=== PATIENT | female | born 1960 | race Caucasian/White ===

== ENCOUNTER 2020-02-09 14:01 | Outpatient (CLI) | payer OTHER, SELFPAY ==
--- NOTE | ~2020-02-09 | CT_ITS ---
EXAMINATION: CT abdomen pelvis w con DATE: 02/09/2020 14:36 INDICATION: Lower abdominal pain, tenderness since surgery in May 2019 TECHNIQUE: Computed tomography (CT) of the abdomen and pelvis was performed with 100 cc Omnipaque 350 intravenous contrast. Automated exposure control and iterative reconstruction technique were employe d. Exam dose: 433.95 mGy-cm total exam DLP. COMPARISON: None. FINDINGS: There is minimal dependent atelectasis in the lower lobes; the lower lung zones are otherwi se clear. Normal heart size. No pericardial or pleural effusion. The liver, gallbladder, bile ducts, spleen, pancreas and pancreatic duct appear normal. Normal morpho logy of the adrenal glands. 11.5 cm upper pole right renal cyst. 5 mm mid right renal cyst there are a couple of 4.5 mm or smalle r lower pole left renal cyst. Normal caliber of the abdominal aorta. No intraperitoneal or retroperitoneal or pelvic mass lesion or adenopathy or ascites. Status post hysterectomy. The urinary bladder is unremarkable. Normal appendix. No bowel obstruction or intraperitoneal free air. Mild diverticulosis of the left co kymberly; no CT evidence of diverticulitis. There is grade 1 anterolisthesis at L4-5 due to degenerative change at the apophyseal joints. No suspicious osteolytic or osteoblastic lesions are noted. IMPRESSION: Renal cysts Mild diverticulosis of the left colon; no CT evidence of diverticulitis Status post hysterectomy Reviewed, dictated and finalized at [facility]. Reviewed, dictated and finalized at location A.
[2020-02-09 14:31] LABS: Estimated Glomerular Filt Rate > 60
== END 2020-02-09 14:02 | disposition home or self-care (01) ==
PROVIDERS: PCP Family Medicine; Visit Provider Obstetrics & Gynecology
DX: N28.1 Cyst of kidney, acquired (principal); K57.30 Diverticulosis of large intestine without perforation or abscess without bleeding; Z90.49 Acquired absence of other specified parts of digestive tract
CPT/HCPCS: 74177; Q9967

== ENCOUNTER 2020-02-11 16:02 | Outpatient (CLI) | payer OTHER, SELFPAY ==
--- NOTE | ~2020-02-11 | MM_ITS ---
EXAMINATION: MM screening pamela BI w margie HISTORY: Screening TECHNIQUE: Craniocaudal and mediolateral oblique 3-D tomosynthesis images were obtained and synthetic 2-D images were generated. CAD analysis was submitted and interpreted. COMPARISON: Comparison to multiple prior studies sequentially, with oldest reviewed study dated 07/31. BREAST PARENCHYMAL COMPOSITION: There are scattered areas of fibroglandular density. FINDINGS: There is no evidence of suspicious mass, calcification, or architectural distortion to sugg est malignancy in either breast. There has been no suspicious interval change. IMPRESSION: 1. No mammographic evidence of malignancy. 2. Recommend routine screening mammography in one year. BI-RADS Category 1: Negative Reviewed, dictated and finalized at location A.
== END 2020-02-11 16:03 | disposition home or self-care (01) ==
LOC: ANHIMG 16:03
PROVIDERS: PCP Family Medicine; Visit Provider Obstetrics & Gynecology
DX: Z12.31 Encounter for screening mammogram for malignant neoplasm of breast (principal)
CPT/HCPCS: 77063; 77067

== ENCOUNTER 2020-04-06 06:54 | Outpatient (NON) | payer OTHER, SELFPAY ==
[2020-04-07 13:08] LABS: SARS-CoV-2 RNA PCR Positive
== END 2020-04-06 06:55 ==
LOC: ANHCOVIDDT 07:06
PROVIDERS: PCP Family Medicine; Visit Provider Physician Assistant Medical
DX: U07.1 COVID-19 (principal)
CPT/HCPCS: 87635; C9803; U0003

== ENCOUNTER 2020-06-29 08:50 | Outpatient (CLI) | payer OTHER, SELFPAY ==
--- NOTE | ~2020-06-29 | DEXA_ITS ---
Bone Density Report Name: Flor Bustamante Age: 60 Sex: Female Ethnicity: White Date of : 1960 Indication: postmenopausal; height loss; prior fracture; hysterectomy; Referring Provider: Lisa Torres Study: Bone densitometry was performed. Exam Date: June 29, 2020 Accession number: [id number] Bone Density: Region BMD T-score Z-score Classification AP Spine (L1-L4) 1.035 -0.1 1.5 Normal Femoral Neck (Left) 0.850 0.0 1.4 Normal Total Hip (Left) 0.952 0.1 1.2 Normal Total Hip Bilateral Avg 0.945 0.1 1.1 Normal Femoral Neck (Right) 0.857 0.1 1.5 Normal Total Hip (Right) 0.937 0.0 1.0 Normal World Health Organization criteria for BMD impression classify patients as: Normal (T-score at or above -1.0), Osteopenia (T-score between -1.0 and -2.5), or Osteoporosis (T-score at or below -2.5). 10-year Fracture Risk: FRAX not reported because: All T-scores for Spine Total, Hip Total, Femoral Neck at or above -1.0 Clinical Information Provided by Patient: Has had a low trauma fracture Has the following medical conditions: Hysterectomy Patient maximum height was 64 Menopause Age: 48 Drinks caffeinated beverages Onset of menses at age 10 Impression: The patient has normal bone mass. The patient has risk factors, including: previous fracture. Discussion: BONE DENSITY IS ABOVE THE MINIMUM DESIRABLE LEVEL AT ALL SKELETAL SITES TESTED. This patient?s bone mineral density is above the minimum desirable level (T-score -1.0 or better) at all sites measured. The patient should follow a healthful lifestyle (good nutrition with adequate calcium and vitamin D, and appropriate weight-bearing exercise). Follow-Up: Consider repeating this study in 5 years or sooner if there is some new clinical indication. Reported by: ARGELIA on 06/29/2020 9:27:00 AM. Reviewed, dictated and finalized at location [facility]
== END 2020-06-29 08:51 | disposition home or self-care (01) ==
LOC: ANHIMG 08:51
PROVIDERS: PCP Family Medicine; Visit Provider Nurse Practitioner Family
DX: E03.9 Hypothyroidism, unspecified (principal); E55.9 Vitamin D deficiency, unspecified; Z78.0 Asymptomatic menopausal state
CPT/HCPCS: 77080

== ENCOUNTER 2022-05-01 16:02 | Outpatient (CLI) | payer OTHER, SELFPAY ==
--- NOTE | ~2022-05-01 | XR_ITS ---
XR shoulder LT min 2V 05/01/2022 16:31 Indication: Chronic left shoulder pain Procedure: 5 views left shoulder Comparison: No prior studies for comparison. Findings: There is mild polyarticular osteoarthritis of the left shoulder involving the glenohumeral and acromioclavicular joints. Osteopenia. Lung are unremarkable. No soft tissue abnormality. Impression: 1: Mild polyarticular osteoarthritis of the left shoulder. Reviewed, dictated and finalized at location A. 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
== END 2022-05-01 16:03 | disposition home or self-care (01) ==
PROVIDERS: PCP Family Medicine; Visit Provider Nurse Practitioner Family
DX: M19.012 Primary osteoarthritis, left shoulder (principal)
CPT/HCPCS: 73030

== ENCOUNTER 2023-01-02 13:52 | Outpatient (CLI) | payer OTHER, SELFPAY ==
--- NOTE | ~2023-01-02 | MM_ITS ---
EXAMINATION: MM screening pamela BI w margie HISTORY: Screening mammogram TECHNIQUE: Craniocaudal and mediolateral oblique 3-D tomosynthesis images were obtained and synthetic 2-D images were generated. CAD analysis was submitted and interpreted. COMPARISON: 02/11/2020, 07/20/2015 bilateral screening mammogram examinations BREAST PARENCHYMAL COMPOSITION: There are scattered areas of fibroglandular density. FINDINGS: There is no evidence of suspicious mass, calcification, or architectural distortion to sugg est malignancy in either breast. There has been no suspicious interval change. IMPRESSION: 1. No mammographic evidence of malignancy. 2. Recommend routine screening mammography in one year. BI-RADS Category 1: Negative Reviewed, dictated and finalized at location A.
== END 2023-01-02 13:53 | disposition home or self-care (01) ==
LOC: ANHIMG 13:55
PROVIDERS: PCP Family Medicine; Visit Provider Obstetrics & Gynecology
DX: Z12.31 Encounter for screening mammogram for malignant neoplasm of breast (principal)
CPT/HCPCS: 77063; 77067

== ENCOUNTER 2024-11-24 01:20 | Day surgery (SDC) | payer MEDICARE, SELFPAY ==
[2024-11-10 08:25] VITALS: BMI 26.6
[2024-11-24 08:37] VITALS: BP 110/66; PULSE 66; RESP 17; TEMP 36.3; O2SAT 99; BMI 26.4
[2024-11-24] MEDS: LACTATED RINGERS 1,000 ML 150 ML IV CONT (08:46)
--- NOTE | 2024-11-24 08:56 | P.PNAN_ITS ---
Anes - Initial Pre Proc Eval Procedure: Operation Date: 11/24/24 10:00 Proposed Procedures p Screening Colonoscopy - Brian Chapa DO Date/Time: 11/24/24 08:56 Surgeon: Brian Chapa DO Pre Op Diagnosis: neoplasm screening Patient Data Age: 64 Gender: F Height: 1.57 m Weight: 65.5 kg Last Vital Signs Temp 36.3 C L 11/24/24 08:37 Pulse 66 11/24/24 08:37 Resp 17 11/24/24 08:37 BP 110/66 11/24/24 08:37 Pulse Ox 99 11/24/24 08:37 O2 Del Method Room Air 11/24/24 08:37 Allergies Allergy/AdvReac Type Severity Reaction Status Date / Time No Known Allergies Allergy Verified 11/24/24 08:36 Home Medications ?Medication ?Instructions ?Recorded ?Confirmed ?Type sumatriptan succinate 100 mg tablet See Rx Instructions .Route 04/14/24 11/10/24 Rx .COMPLEX #9 tabs levothyroxine 100 mcg tablet See Rx Instructions .Route 08/11/24 11/10/24 Rx .COMPLEX #90 tabs estradiol 1 mg tablet 1 mg PO DAILY #30 tabs 11/02/24 11/10/24 Rx Patient hx anesthesia problems: none Family hx anesthesia problems: none Results Review: All pre-operative results and documents have been reviewed as part of the pre- operative evaluation. FOR[facility]LY [facility] Past Medical History Medical History Changing skin lesion Skin tag Seborrheic keratoses Actinic keratosis Open wound of tongue due to bite Left shoulder pain Anemia Foul smelling urine Acute sinusitis Vitamin D deficiency Vitamin D deficiency, unspecified Abnormal weight gain BMI 26.0-26.9,adult Fear of flying Screening mammogram, encounter for Anxiety Hypothyroidism Chronic UTI (urinary tract infection) BMI 25.0-25.9,adult Abdominal fullness in right lower quadrant Renal cyst Surgical History Surgical History H/O: hysterectomy History of bladder surgery History of sacrocolpopexy (05/14/19) History of endometrial ablation menometrorrhagia History of bladder suspension procedure History of robot-assisted laparoscopic hysterectomy (05/14/19) total laparoscopic hysterectomy w/bilateral salpingo-oophorectomy--uterine prolapse Family History Family History Grandparent Family history of coronary artery disease Father Cerebrovascular accident Mother Sibling Rectal cancer brother Social History Social History Years smoked: 10 Smoking status: Former smoker Tobacco type: cigarettes Second hand tobacco smoke exposure: No Smoking end date: 12/01/91 Alcohol intake: current Drinks per week: 5 Alcohol use details: social Substance use: never Substance use type: does not use Other substance usage details: CBD oil for sciatica Do You Feel Safe in your Home?: Yes Lack of Transportation: No Lack of Food: Never True Current Housing: Decline to Answer Concerned About Future Housing: Decline to Answer Difficulty Paying Gas/Electric Bills: Decline to Answer Difficulty Paying for Meds: Decline to Answer Currently Unemployed: Decline to Answer Education: Decline to Answer Difficulty w/ Childcare or Family Care: Decline to Answer Living arrangements: alone Additional living arrangements comments: Occupation/Education: retired Gender identity (if verbalized by the patient): Female Sexual Orientation (if Verbalized by the Patient): Straight or Heterosexual Spiritual care concerns: No Anes - Eval Final PreProcedure Day of Procedure 11/24/24 08:56 Patient weight: overweight Heart: regular rate and rhythm Lungs: clear to auscultation Airway: Mallampati scale class II Neurological: alert and oriented Last oral intake: >/= 8 hours ASA classification: III Emergent: no Anesthetic plan: proceed Anesthesia type and monitoring: general GIVS and standard monitoring Results Review: All pre-operative results and documents have been reviewed as part of the pre- operative evaluation. Informed Consent: The patient's anesthetic plan and its attendant risks and benefits were discussed with the patient/family/POA. Questions were solicited and answers provided to the satisfaction of the patient/family/POA.
--- NOTE | 2024-11-24 09:43 | P.HP_ITS ---
H&P: HPI History of Present Illness Date/Time: 11/24/24 09:43 Chief Complaint: screening for colorectal cancer Narrative: this is a 64-year-old woman who presents for colonoscopy. Her last colonoscopy was 13 years ago and was normal. She denies any hematochezia or melena. She denies any family history of colon cancer. Review of Systems Review of Systems: All systems reviewed & are unremarkable except as noted in HPI and below Constitutional: Constitutional: Denies chills, Denies fever(s), Denies headache(s) and Denies weight loss Eyes: Eyes: Denies change in vision ENT: Denies dizziness, Denies headache(s), Denies neck mass and Denies throat swelling Cardiovascular: Cardiovascular: Denies chest pain, Denies lightheadedness and Denies dyspnea Respiratory: Respiratory: Denies cough, Denies dyspnea and Denies wheezing Gastrointestinal: Gastrointestinal: Denies abdominal pain, Denies change in bowel habits, Denies nausea and Denies vomiting Genitourinary: Genitourinary: Denies hematuria and Denies dysuria Musculoskeletal: Musculoskeletal: Reports as per HPI Integumentary/Breasts: Skin/Breast: Reports as per HPI Neurologic: Denies dizziness and Denies headache(s) Allergic/Immunologic: Allergic/Immunologic: Denies throat swelling and Denies wheezing PMFSH Past Medical History Medical History Changing skin lesion Skin tag Seborrheic keratoses Actinic keratosis Open wound of tongue due to bite Left shoulder pain Anemia Foul smelling urine Acute sinusitis Vitamin D deficiency Vitamin D deficiency, unspecified Abnormal weight gain BMI 26.0-26.9,adult Fear of flying Screening mammogram, encounter for Anxiety Hypothyroidism Chronic UTI (urinary tract infection) BMI 25.0-25.9,adult Abdominal fullness in right lower quadrant Renal cyst Surgical History Surgical History H/O: hysterectomy History of bladder surgery History of sacrocolpopexy (05/14/19) History of endometrial ablation menometrorrhagia History of bladder suspension procedure History of robot-assisted laparoscopic hysterectomy (05/14/19) total laparoscopic hysterectomy w/bilateral salpingo-oophorectomy--uterine prolapse Family History Family History Grandparent Family history of coronary artery disease Father Cerebrovascular accident Mother Sibling Rectal cancer brother Social History Social History Years smoked: 10 Smoking status: Former smoker Tobacco type: cigarettes Second hand tobacco smoke exposure: No Smoking end date: 12/01/91 Alcohol intake: current Drinks per week: 5 Alcohol use details: social Substance use: never Substance use type: does not use Other substance usage details: CBD oil for sciatica Do You Feel Safe in your Home?: Yes Lack of Transportation: No Lack of Food: Never True Current Housing: Decline to Answer Concerned About Future Housing: Decline to Answer Difficulty Paying Gas/Electric Bills: Decline to Answer Difficulty Paying for Meds: Decline to Answer Currently Unemployed: Decline to Answer Education: Decline to Answer Difficulty w/ Childcare or Family Care: Decline to Answer Living arrangements: alone Additional living arrangements comments: Occupation/Education: retired Gender identity (if verbalized by the patient): Female Sexual Orientation (if Verbalized by the Patient): Straight or Heterosexual Spiritual care concerns: No Meds Home Medications and Allergies Home Medications ?Medication ?Instructions ?Recorded ?Confirmed ?Type sumatriptan succinate 100 mg tablet See Rx Instructions .Route 04/14/24 11/10/24 Rx .COMPLEX #9 tabs levothyroxine 100 mcg tablet See Rx Instructions .Route 08/11/24 11/10/24 Rx .COMPLEX #90 tabs estradiol 1 mg tablet 1 mg PO DAILY #30 tabs 11/02/24 11/10/24 Rx Allergies Allergy/AdvReac Type Severity Reaction Status Date / Time No Known Allergies Allergy Verified 11/24/24 08:36 Vital Signs Vital Signs - 24 hr 11/24/24 08:37 Temperature 97.3 F L Pulse Rate 66 Respiratory Rate 17 Blood Pressure 110/66 Pulse Oximetry 99 Oxygen Delivery Room Air Exam Const: General: no acute distress and alert Orientation/consciousness: patient oriented x3 HENMT: Head: normocephalic and atraumatic Ears: hearing grossly normal bilaterally Face/Nose/Sinus: Normal nares present Mouth: Yes Normal oral and palatal mucosa present Eyes: Periorbital: periorbital findings normal Sclera: sclerae normal EOM: EOMs intact bilaterally Neck: Neck: normal visual inspection, no lymphadenopathy and trachea midline Chest: Chest palpation & inspection: normal inspection of the chest Resp: Effort & Inspection: normal respiratory effort Auscultation: clear to auscultation bilaterally Cardio: Jugular venous distension: no JVD Rate: regular rate Rhythm: regular rhythm Heart sounds: S1 normal heart sound present and S2 normal h eart sound present Peripheral pulses: Peripheral pulses 2+ throughout GI: Inspection: normal to inspection GI Palp: Yes Soft to palpation, No Tenderness to palpation present (GI), No Guarding due to palpation present (GI) and No Rebound tenderness present Percussion: Yes normal to percussion Auscultation: normal bowel sounds : General: Yes no CVA tenderness Back/Spine/Pelvis: Back: no CVA tenderness Neuro: General: patient oriented x3, no focal motor deficits and CN's II-XI intact bilaterally Cognition (Neuro): normal cognition Speech: normal speech Motor exam (neuro): 5/5 motor strength present throughout Extrem: General: capillary refill normal and no clubbing, cyanosis or edema Assessment and Plan Assessment and plan (1) Encounter for screening colonoscopy: Code(s): Z12.11 - Encounter for screening for malignant neoplasm of colon Status: Acute Assessment and Plan: I have recommended colonoscopy. I have discussed the procedure, risks, benefits, and alternatives. Questions were answered. Patient is agreeable to proceed.
--- NOTE | 2024-11-24 10:16 | S_PTH ---
PATIENT: Flor Bustamante LOC: [facility] V[facility]la#:[id number] AGE/SX: 64/F ROOM: RE11/24/[address]: Brian Chapa DO : 1960 BED: DIS: 11/24/2024 SPEC #: [id number] RECD: 11/24/24 10:54 STATUS: BARBER REQ #: [id number] CESAR: 11/24/24 10:[address]: Brian Chapa DEPT: [facility] Surgical RECD BY: Evangelina Preciado ENTERED: 11/24/24 10:55 SP TYPE: Surgical OTHR DR: Finesse Mazariegos MD Tissues: A - Colon Polypectomy B - Rectal Polyp Procedures: Hematoxylin and Eosin Stain Gross and Microscopic Level 4
[2024-11-24 10:20] VITALS: BP 100/46; PULSE 70; RESP 19; O2SAT 99
[2024-11-24 10:30] VITALS: BP 103/68; PULSE 64; RESP 18; O2SAT 99
[2024-11-24 10:40] VITALS: BP 101/60; PULSE 59; RESP 19; O2SAT 99
== END 2024-11-24 10:51 | disposition home or self-care (01) ==
PROVIDERS: PCP Family Medicine; Visit Provider Surgery
PROC: 0DJD8ZZ Inspection of Lower Intestinal Tract, Via Natural or Artificial Opening Endoscopic (ICD-10-PCS; CPT 45378; principal; 2024-11-24 10:00)
DX: Z12.11 Encounter for screening for malignant neoplasm of colon (principal); D12.3 Benign neoplasm of transverse colon; D12.8 Benign neoplasm of rectum; K57.30 Diverticulosis of large intestine without perforation or abscess without bleeding; D64.9 Anemia, unspecified; E55.9 Vitamin D deficiency, unspecified; F41.9 Anxiety disorder, unspecified; E03.9 Hypothyroidism, unspecified; L82.1 Other seborrheic keratosis; L57.0 Actinic keratosis; F12.90 Cannabis use, unspecified, uncomplicated; Z98.890 Other specified postprocedural states; Z98.891 History of uterine scar from previous surgery; Z87.891 Personal history of nicotine dependence; Z80.0 Family history of malignant neoplasm of digestive organs; Z82.49 Family history of ischemic heart disease and other diseases of the circulatory system
CPT/HCPCS: 45385; 88305; J2003; J2704; J7120

== ENCOUNTER 2025-04-07 15:47 | Outpatient (CLI) | payer MEDICARE, SELFPAY ==
--- NOTE | ~2025-04-07 | MM_ITS ---
EXAMINATION: MM screening pamela BI w margie HISTORY: Screening TECHNIQUE: Craniocaudal and mediolateral oblique 3-D tomosynthesis images were obtained and synthetic 2-D images were generated. CAD analysis was submitted and interpreted. COMPARISON: Comparison to multiple prior studies sequentially, with oldest reviewed study dated , 07/31/2010 BREAST PARENCHYMAL COMPOSITION: There are scattered areas of fibroglandular density. FINDINGS: There is no evidence of suspicious mass, calcification, or architectural distortion to suggest malignancy in either breast. IMPRESSION: 1. No mammographic evidence of malignancy. 2. Recommend routine screening mammography in one year. BI-RADS Category 1: Negative Reviewed, dictated and finalized at location B. 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
== END 2025-04-07 15:48 | disposition home or self-care (01) ==
LOC: MICIMG 15:47
PROVIDERS: PCP Family Medicine; Visit Provider Obstetrics & Gynecology
DX: Z12.31 Encounter for screening mammogram for malignant neoplasm of breast (principal)
CPT/HCPCS: 77063; 77067

== ENCOUNTER 2025-04-27 10:48 | Observation (INO) | payer MEDICARE, SELFPAY ==
[2025-04-27] VITALS (26 sets, daily range): BP systolic 98–121; BP diastolic 55–90; PULSE 58–91; RESP 12–26; TEMP 36.3–37.1; O2SAT 96–100; BMI 27.8; BMI 27.6
--- NOTE | ~2025-04-27 | CT_ITS ---
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 TECHNIQUE: CTA scan with 3D Reconstructions of the brain and neck was performed with contrast Isovue 300, 92cc injected IV. One or more of the following dose reduction techniques were used: automated exposure control, adjustment of the mA and/or kV according to patient size, use of iterative reconstruction technique. Unless otherwise stated, incidental findings do not require dedicated follow up imaging FINDINGS: CTA brain: Visualized brain parenchyma appears unremarkable. No sclerotic or lytic lesions are identified. The basilar artery appears unremarkable. The right posterior cerebral artery appears unremarkable. The left posterior cerebral arteries. Predominantly by the jena of [place] and appears unremarkable. The right petrous and cavernous ICA segments are unremarkable. The right M1, M2 segments and their branches are unremarkable. The right A1 and A2 segments are unremarkable The left petrous and cavernous ICA segments unremarkable. The left M1, M2 segments and their branches appear unremarkable. The left A1 and A2 segments are unremarkable. CTA NECK: Soft tissues appear unremarkable. There is a rim-enhancing focus in the left tonsillar tissue measuring 5 x 6 mm which is incompletely characterized. There is no thickening of the prevertebral space. Visualized submandibular and parotid glands are unremarkable. There is no lymphadenopathy appreciated. Nonspecific thickening is noted of the esophagus. The lung apices appear unremarkable. There are no sclerotic or lytic lesions identified. No significant sinusitis The cervical segments of the vertebral arteries appear unremarkable. The left vertebral artery is dominant Right CCA unremarkable. Proximal right ICA unremarkable. Left CCA unremarkable. Proximal left ICA unremarkable. IMPRESSION: 1. There is no critical stenosis, occlusion or aneurysm identified. 2. Left tonsillar lesion incompletely characterized. Neoplasm is not excluded. ENT consultation is recommended Reviewed, dictated and finalized at location P. ITY IMPROVEMENT ENGINEER
--- NOTE | ~2025-04-27 | MR_ITS ---
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 Sequences included sagittal and axial T1-weighted SE, axial diffusion-weighted FS SE, axial T2*-weighted GRE, axial T2-weighted FLAIR Propeller, and axial T2-weighted Propeller. Apparent diffusion coefficient (ADC) maps were created. 14 cc MultiHance administered intravenously COMPARISON: CTA brain/carotid dated 04/27/[address] brain dated 04/27/2025 FINDINGS: The brain volume and ventricular system are within normal limits. The brain parenchymal signal intensity pattern and michaels/white matter is normal and there is no evidence of hemorrhage, space occupying masses or infarctions. The flow signal voids of the major arterial structures about the crow of [place] and within the major dural venous sinuses appear grossly unremarkable and patent. The seventh and eighth cranial nerve complexes are normal. The mid sagittal image demonstrates a normal craniovertebral junction and corpus callosum. The paranasal sinuses are grossly unremarkable. No abnormal contrast enhancement was appreciated. Hypovascular left tonsillar lesion measuring 5 mm incompletely characterized as visualized on image 1 only. IMPRESSION: 1: No acute intracranial abnormality. 2: Incompletely evaluated 5 mm hypovascular lesion left tonsillar region. Recommend ENT consultation. Reviewed, dictated and finalized at location O. D WASTE COLLECTOR IMPRESSION: 1: No acute intracranial abnormality. 2: Incompletely evaluated 5 mm hypovascular lesion left tonsillar region. Recom mend ENT consultation.
--- NOTE | ~2025-04-27 | XR_ITS ---
Examination: XR chest 1V portable Clinical History: loss of vision Comparison: None Technique: Portable AP Findings: Heart size normal. Lungs clear. No acute bony abnormality. IMPRESSION: 1. No acute cardiopulmonary findings given portable technique. Consider PA and lateral films. Reviewed, dictated and finalized at location R. ANCE EDUCATION COORDINATOR
--- NOTE | ~2025-04-27 | CT_ITS ---
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 Technique: Axial images obtained of the brain without contrast. One or more of the following dose reduction techniques were used: automated exposure control, adjustment of the mA and/or kV according to patient size, use of iterative reconstruction technique. Findings: No acute infarct or parenchymal hemorrhage. No abnormal mass or mass effect. No midline shift. No extra-axial fluid collections. No hydrocephalus. Mastoid air cells unremarkable. Sinuses and orbits unremarkable. No acute fracture. No significant facial or scalp soft tissue swelling evident. No radiopaque foreign body is seen. Impression: 1.No acute intracranial abnormality. Results discussed with the referring clinician immediately Reviewed, dictated and finalized at location P. BOILER Impression: 1.No acute intracranial abnormality. Results discussed with the referring clinician immediately
--- NOTE | 2025-04-27 10:53 | ECG_ITS ---
Test Date: 2025-04-27 11:08:42 Measurements Intervals [place] Rate: 79 P: 44 SC: 159 QRS: 9 QRSD: 92 T: 12 QT: 378 QTc: 435 Interpretive Statements SINUS RHYTHM LOW QRS VOLTAGE BORDERLINE ECG No previous ECG available for comparison Electronically Signed On 04-27-2025 17:28:52 CLINICAL TRIAL MANAGER by Peter Ponce M.D.
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
[2025-04-27 11:12] LABS: Hematocrit 39.1 % (37.0-47.0); Hemoglobin 12.8 g/dL (12.0-15.0); Immature Granulocyte Percent A 0.2 % (0-0.5); Lymphocytes Absolute Auto 1.47 K/mm3 (0.9-3.2); Mean Corpuscular HGB Conc 32.7 g/dl (32-36); Mean Corpuscular Hemoglobin 29.2 pg (26-34); Mean Corpuscular Volume 89.3 fl (80-100); Nucleated Red Blood Cells Absolute Auto 0.000 K/mm3 (0.0-0.012); Nucleated Red Blood Cells Perc 0.0 % (0.0-0.2); Platelet Count Result 239 k/mm3 (150-375); Red Blood Count 4.38 M/mm3 (4.2-5.4); White Blood Count 5.2 K/mm3 (4.5-10.0)
[2025-04-27 11:23] LABS: INR 1.0; Prothrombin Time 12.9 Seconds (11.1-14.7)
[2025-04-27 11:24] LABS: Partial Thromboplastin Time 26.5 Seconds (22.3-36.8)
[2025-04-27 11:29] LABS: Alanine Aminotransferase 18 U/L (6-35); Albumin Level 4.5 g/dL (3.5-5.1); Alkaline Phosphatase 74 U/L (38-126); Anion Gap 7 mmol/L (4-12); Aspartate Amino Transferase 29 U/L (14-36); Bilirubin,Total 0.6 mg/dL (0.2-1.3); Blood Urea Nitrogen 12 mg/dL (7-17); Calcium 9.4 mg/dL (8.4-10.2); Carbon Dioxide 26 mmol/L (22-30); Chloride 105 mmol/L (98-107); Estimated CRCL calculation 61 ml/min; Estimated Glomerular Filt Rate > 60; Glucose 113 mg/dL (65-110); Potassium 4.2 mmol/L (3.4-5.0); Sodium 138 mmol/L (137-145); Total Protein 7.8 g/dL (6.3-8.2)
[2025-04-27 11:36] LABS: Troponin I < 0.012 ng/mL (0.000-0.034)
[2025-04-27] MEDS: ASPIRIN 81 MG CHEWABLE TABLET 324 MG PO (11:36)
--- OUTSIDE RECORDS SUMMARY | 2025-04-27 12:51 | XMS_ITS | Clinical Summary ---
Author Organization [facility] Address [address] [place] [id number] Care Team Providers Care Movement Therapist Name Role Phone Unavailable Primary Care Provider Unavailabl e Social History Tobacco Use Types Packs/Day Years Used Date Smoking Tobacco: Never Assessed Comments Unknown Sex and Gender Information Value Date Recorded Sex Assigned at Not on file Legal Sex Female 8:22 PM CDT Gender Identity Not on file Sexual Orientation Not on file Last Filed Vital Signs Vital Sign Reading Time Taken Comments Blood Pressure 101/65 12/27/2015 11:30 AM CDT Pulse 76 12/27/2015 11:30 AM CDT Temperature - - Respiratory Rate - - Oxygen Saturation - - Inhaled Oxygen Concentration - - Weight 66.2 kg (146 lb) 12/27/2015 11:30 AM CDT Height 160 cm (5' 3) 12/27/2015 11:30 AM CDT Body Mass Index 25.86 12/27/2015 11:30 AM CDT Plan of Treatment Health Maintenance Due Date Last Done Comments Colorectal Cancer Screening Colonoscopy (10 Years) 1958 Hepatitis C 02/27/1976 DTaP, Tdap and Td Vaccines ( 1 - Tdap) 1977 Mammogram Screening 1998 Pneumococcal Vaccine: 50+ Ye ars (1 of 1 - PCV) 02/27/2008 Zoster Vaccines (1 of 2) 02/27/2008 Dexa Scan (General) 2023 COVID-19 Vaccine (1 - 2024-2 6 season) 2025 Influenza Adult (#1) 2025 RSV Immunization or 60+ Years (1 - 1-dose 75+ series) 2033 Hepatitis A Vaccines Aged Out No long er eligible based on patient's age to complete this topic Meningococcal B Vaccine Aged Out No l onger eligible based on patient's age to complete this topic Meningococcal Vaccine Aged Out No kymberly nicolás eligible based on patient's age to complete this topic RSV Immunizations Under 20 Months Aged Out No longer eligible based on patient's age to complete this topic
--- OUTSIDE RECORDS SUMMARY | 2025-04-27 12:51 | XMS_ITS | Encounter Summary ---
Author Organization [facility] Address [address] [place] [address] Care Team Providers Care Manager Scientific Name Role Phone Finesse Mazariegos MD Primary Care Provider [phone] Encounter Details Date Type Department Care Team (Late st Contact Info) Description 01/28/2024 Lab Requisition [facility] - DermPath Lab [address] [facility] [facility], [facility] [place] [id number] Finesse Mazariegos MD [address] [place] [address] Social History Tobacco Use Types Packs/Day Years Used Date Smoking Tobacco: Former Smokeless Tobacco: Never Comments No Sex and Gender Information Value Date Recorded Sex Assigned at Not on file Legal Sex Female 10:17 PM CDT Gender Identity Not on file Sexual Orientation Not on file documented as of this encounter Plan of Treatment Not on file documented as of this encounter Procedures Procedure Name Priority Date/Time Associated Diagnosis Comments DERMATOPATHOLOGY Routine 01/27/2024 12:0 0 AM CDT documented in this encounter Results * DERMATOPATHOLOGY (01/27/2024 12:00 AM CDT) Case Report Dermatopathology Report Case: [id number] Authorizing Provider: Finesse Mazariegos MD Collected: 01/27/2024 12:00 AM Ordering Location: [facility] - Received: 01/28/2024 10:20 AM DermPath Lab Pathologist: Kylie Lauren MD Specimen: Skin, left upper back 1:02 PM CDT DERMATOPATHOLOGY LABORATORY Final Diagnosis Specimen A. SKIN, left upper back: SEBORRHEIC KERATOSIS (L82.1) PRESENT AT MARGIN 1:02 PM CDT DERMATOPATHOLOGY LABORATORY at 1302 CDT Clinical History Changing suspicious lesion Please check margins 1:02 PM CDT DERMATOPATHOLOGY LABORATORY Gross Description Specimen A: Received is one formalin filled container labeled with the patient's name and designated left upper back. The specimen consists of a shave biopsy measuring [id number] mm. Jar 0. 1:02 PM CDT DERMATOPATHOLOGY LABORATORY Microscopic Description Specimen A. SKIN, left upper back: Sections show an acanthotic lesion composed of relatively uniform keratinocytes. There is hyperkeratosis and pseudo horn cysts formation. This lesion is present at the margin of the specimen. 1:02 PM CDT DERMATOPATHOLOGY LABORATORY Disclaimer An external and internal positive and negative controls are appropriate for the histochemical, immunohistochemical and immunofluorescence stain(s) in this case (if any), except where stated explicitly. The performance characteristics of the stain(s) cited in this report were developed and its performance characteristic determined by the Dermatopathology Laboratory at [facility], directed by Dr. Fredi Nixon. These tests need not be, and therefore are not, approved by the [place] Food and Drug Administration. The tests are used for clinical purposes. Billing Codes Specimen Charges Stain Charges 45949 1 1:02 PM CDT DERMATOPATHOLOGY LABORATORY Embedded Images 1:02 PM CDT DERMATOPATHOLOGY LABORATORY Pathology/Cytolog y TISSUE SPECIMEN FROM SKIN / Unknown 01/27/2024 01/28/2024 10:20 AM CDT Finesse Mazariegos MD LAB - PATHOLOGY/CYTOLOGY DEMI HILARIO Final Result DERMATOPATHOLOGY LABORATORY [facility] - Department of Dermatology [facility] Medicine [address] [place] [address], [address] [phone] documented in this encounter Visit Diagnoses Not on filedocumented in this encounter Care Teams Manager Scientific Relationship Specialty Start Date End Date Finesse Mazariegos MD [address] [place] [address] PCP - General 03/01/20 documented as of this encounter
--- OUTSIDE RECORDS SUMMARY | 2025-04-27 12:51 | XMS_ITS | Clinical Summary ---
Author Organization [facility] Address [address] [address] Phone Care Team Providers Care Er Physician Name Role Phone Finesse Mazariegos MD Primary Care Provider [phone] Allergies No known active allergies Medications Levothyroxine Sodium (SYNTHROID PO) Take by mouth. Active Active Problems No known active problems Social History Tobacco Use Types Packs/Day Years Used Date Smoking Tobacco: Former Smokeless Tobacco: Never Tobacco Cessation:Counseling Given: No Alcohol Use Standard Drinks/Week Comments Yes 0 (1 standard drink = 0.6 oz pur e alcohol) Sexually Active Control Partners Comments Not Currently Comments Unknown Sex and Gender Information Value Date Recorded Sex Assigned at Not on file Legal Sex Female 10:09 PM CDT Gender Identity Not on file Sexual Orientation Not on file Last Filed Vital Signs Vital Sign Reading Time Taken Comments Blood Pressure 110/78 10/13/2020 3:23 PM CDT Pulse 89 10/13/2020 3:23 PM CDT Temperature 36.1 C (97 F) 10/13/2020 3:23 PM CDT Respiratory Rate 16 10/13/2020 3:23 PM CDT Oxygen Saturation 98% 10/13/2020 3:23 PM CDT Inhaled Oxygen Concentration - - Weight 69.3 kg (152 lb 12.8 oz) 10/13/2020 3:23 PM CDT Height 160 cm (5' 3) 10/13/2020 3:23 PM CDT Body Mass Index 27.07 10/13/2020 3:23 PM CDT Plan of Treatment Health Maintenance Due Date Last Done Comments Hepatitis C Virus (HCV) Screening 1958 Varicella Immunization (1 of 2 - 13+ 2-dose series) 1971 Cologuard 2003 Colonoscopy 2003 Colorectal Cancer Screening 2003 Immunochemical Fecal Occult Blood 2003 Pneumococcal Immunization (5 0+ years) (1 of 1 - PCV) 02/27/2008 Zoster Immunization (2 of 2) 04/23/2019 2019 Influenza Immunization (#1) 2025 2019 SARS-COV-2 Immunization (1 - season) 2025 Respiratory Syncytial Virus (RSV) Immunization (Adult) (1 - 1-dose 75+ series) 2033 DTaP/Tdap/Td Immunization Discontinued 09/30/2014 TdaP Immunization Completed 09/30/2014 Hepatitis B Immunization Aged Out No longer eligible based on patient's age to complete this topic Human Papillomavirus (HPV) Immunization Aged Out No longer eligible b ased on patient's age to complete this topic Meningococcal Immunization (ACWY) Aged Out No longer eligible based on patient's age to complete this topic Rotavirus Immunization Aged Out No lo nger eligible based on patient's age to [place] [address] MEDICAID [place] Care Teams Er Physician Relationship Specialty Start Date End Date Finesse Mazariegos MD [address] [address] PCP - General Family Medicine 09/16/20
--- OUTSIDE RECORDS SUMMARY | 2025-04-27 12:51 | XMS_ITS | Clinical Summary ---
Author Organization [facility] Address [address] [place] [address] Care Team Providers Care Recreation Counselor Name Role Phone Finesse Mazariegos MD Primary Care Provider [phone] Source Comments [facility],non-owned Affiliates and Associated Physician Practices is amultiple site organization consisting of ambulatory clinics and hospital sitesin [place], [place], [place] and [place]. This disclosure is being madepursuant to the Care Everywhere program and may not contain all information available regarding this patient. Last updated 18.[facility] Allergies No known active allergies Medications * Be aware that medications may not be up to date on this document. Alwaysverify current medications with the patient. Levothyroxine Sodium (SYNTHROID PO) Activ e SUMAtriptan (IMITREX) 100 MG tablet sumatriptan 100 mg tablet Active phentermine (IONAMINE) 30 MG capsule every 24 hours Acti ve Active Problems Problem Noted Date Diagnosed Date Multiple benign melanocytic nevi of upper and lower extremities and trunk 03/01/2022 Seborrheic keratosis 03/01/2022 Social History Tobacco Use Types Packs/Day Years Used Date Smoking Tobacco: Former Smokeless Tobacco: Never Comments No Sex and Gender Information Value Date Recorded Sex Assigned at Not on file Legal Sex Female 10:17 PM CDT Gender Identity Not on file Sexual Orientation Not on file Last Filed Vital Signs Vital Sign Reading Time Taken Comments Blood Pressure 115/74 03/30/2020 9:09 AM CDT Pulse 70 03/30/2020 9:09 AM CDT Temperature 36.9 C (98.5 F) 03/30/2020 9:09 AM CDT Respiratory Rate 20 03/30/2020 9:09 AM CDT Oxygen Saturation 98% 03/30/2020 9:09 AM CDT Inhaled Oxygen Concentration - - Weight 65.8 kg (145 lb) 03/30/2020 9:09 AM CDT Height 160 cm (5' 3) 03/30/2020 9:09 AM CDT Body Mass Index 25.69 03/30/2020 9:09 AM CDT Plan of Treatment Health Maintenance Due Date Last Done Comments BONE DENSITY TESTING 1960 COLOGUARD (AGES 45-75) - COL ON CA SCREENING 1958 COLON MONITORING 1958 COLONOSCOPY - COLON CA SCREENING 1958 CT COLONOGRAPHY - COLON CA SCREENING 1958 Colorectal Cancer Screening 1958 FIT - COLON CA SCREENING 1958 FLEX SIG - COLON CA SCREENING 1958 LIPID TESTING 1958 MAMMOGRAM 1958 HEPATITIS C SCREENING 02/22/1976 DTAP/TDAP/TD VACCINES (1 - Tdap) 1977 PNEUMOCOCCAL VACCINE 50+ (1 of 1 - PCV) 02/27/2008 ZOSTER VACCINE (1 of 2) 02/27/2008 DEPRESSION SCREENING 06/03/2024 MEDICARE AWV CALENDAR YEAR 2024 COVID-19 VACCINE (1 - 2024-2 6 season) 2025 INFLUENZA VACCINE (#1) 2025 2019 Respiratory Syncytial Virus (RSV) Vaccine Pt: or over 60 yrs (1 - 1-dose 75+ series) 2033 HEPATITIS B VACCINE Aged Out No longe r eligible based on patient's age to complete this topic HIB VACCINE Aged Out No longer eligi ble based on patient's age to complete this topic HPV VACCINE Aged Out No longer eligi ble based on patient's age to complete this topic MENINGOCOCCAL (Group B) VACC INE SHARED DECISION-MAKING Aged Out No longer eligibl e based on patient's age to complete this topic MENINGOCOCCAL GROUPS A/C/Y/W VACCINE Aged Out No longer eligible b ased on patient's age to complete this topic Insurance [facility] MANAGED MEDICARE ADV [facility] MANAGED MEDICARE ADV SELF PAY NO INSURANCE Member Subscriber Plan / Payer (Ef fective for All Dates) Name:Flor Bustamante Member ID:Not on file Relation to Subscriber:Not on file Name:FLOR BUSTAMANTE Subscriber ID:Not on file (Home) Address: [address] [place] [address] [place] [address] Payer ID:Not on file Group ID:Not on file Type:Self Pay Address: [place], [place] Care Teams Recreation Counselor Relationship Specialty Start Date End Date Finesse Mazariegos MD [address] [place] [address] PCP - General 03/01/20
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
--- NOTE | 2025-04-27 14:25 | ADMGEN ---
This patient, Flor S Bustamante, was admitted to [facility] Surg Room 316-01. Patient/family oriented to hospital policies and general routines including ID bracelet, bed and alarms, visiting hours, pain management, procedures, bathroom and other care routines, personal items, smoking policy, room service/diet, and visiting hours. Information on how to activate the Rapid Response Team has been discussed. Patient/Family are encouraged to report perceived risks to care and to ask questions if they do not understand what they are told or what they should do. Report received from darcie
[2025-04-27] MEDS: CALCIUM CARBONATE (TUMS) 500 MG (200 MG ELEMENTAL) PO (21:15)
[2025-04-28] VITALS: PULSE 58
--- NOTE | 2025-04-28 | ECHO_ITS ---
Patient Info Name: Flor Contreras Bustamante Age: 65 years : 1960 Gender: Female Ht: 63 in Wt: 155 lbs BSA: 1.79 m2 HR: 80 bpm BP: 99 / 63 mmHg Technical Quality: Fair Exam Date: 04/28/2025 2:40 PM Patient Status: O Admit Date: 04/27/2025 Exam Type: CA echo doppler w bubble study Complete two-dimensional, color flow and Doppler transthoracic echocardiogram is performed with agitated saline. Staff Referring Physician: Ramy Bills Human Resources Office Assistant: Alli Ochoa III Attending Provider: Navi Benson Contrast/Agitated Saline Contrast/Ag. Saline: Agitated Saline Amount: 16.00 ml Existing IV Access: Yes IV Access Condition: patent with no signs of infiltration Summary 1. tough apical windows, bubble study less than ideal due to patient movement during valsalva/bracing. 2. Left ventricular chamber dimension is normal. 3. Left ventricular systolic function is normal, estimated at 60-65. 4. The left ventricular diastolic function is grade I diastolic dysfunction. 5. E/e' 5 is not elevated. 6. There is trace tricuspid valve regurgitation. Left Ventricle E/e' 5 is not elevated. Left ventricular chamber dimension is normal. Left ventricular systolic function is normal, estimated at 60-65. The left ventricular diastolic function is grade I diastolic dysfunction. Right Ventricle Right ventricular chamber dimension is normal. Right ventricular systolic function is normal and with normal TAPSE 2.0 cm. Left Atria Left atrial chamber dimension is normal. Right Atria Right atrial chamber dimension is normal. Atrial Septum Interatrial septum not well visualized by 2D and agitated saline imaging. Agitated saline injection with and without valsalva maneuver opacified right side cardiac chambers without shunt to left side cardiac chambers. Aortic Valve The aortic valve is trileaflet. There is no aortic valve stenosis. There is no aortic valve regurgitation. Pulmonic Valve There is no pulmonic regurgitation. Mitral Valve There is no mitral valve stenosis. There is no mitral valve regurgitation. Tricuspid Valve There is trace tricuspid valve regurgitation. RVSP is not measured due to an inadequate TR jet. Pericardium/Pleural There is no pericardial effusion. Inferior Vena Cava Normal inferior vena cava with >50% collapse upon inspiration consistent with normal right atrial pressure, 5 mmHg. Aorta The aortic root size at the sinus of Valsalva is normal. Left Ventricular Outflow Tract Name Value Normal LVOT 2D LVOT Diameter 2.1 cm LVOT Doppler LVOT Peak Velocity 79 cm/s LVOT Peak Gradient 3 mmHg LVOT Mean Gradient 2 mmHg LVOT VTI 18 cm LVOT VTI/AV VTI Ratio 0.7 LVOT Stroke Volume 61 ml LVOT CO 3.7 l/min LVOT CI 2.1 l/min/m2 Pulmonic Valve Name Value Normal PV Doppler PV Peak Velocity 67 cm/s PV Peak Gradient 2 mmHg PV Mean Gradient 1 mmHg Mitral Valve Name Value Normal MV Doppler MV Peak Gradient 3 mmHg MV Mean Gradient 1 mmHg MV Area (Cont Eq VTI) 2.5 cm2 MV Diastolic Function MV E Peak Velocity 59 cm/s MV A Peak Velocity 77 cm/s MV E/A 0.8 MV Decel Time (PW) 232 ms MV Annular TDI MV E/e' (Septal) 6.7 MV E/e' (Lateral) 5.1 MV E/e' (Average) 5.9 Tricuspid Valve Name Value Normal Estimated PAP/RSVP RA Pressure 5 mmHg <=5 TV Annular TDI TV Lateral Lennie s' Velocity 11.9 cm/s >=9.5 Aortic Valve Name Value Normal AV Doppler AV Peak Velocity 115 cm/s AV Peak Gradient 5 mmHg AV Mean Gradient 3 mmHg AV VTI 26 cm AV Area (Cont Eq VTI) 2.4 cm2 >=3.0 AV Area (Cont Eq Kevon) 2.3 cm2 AV DI (Kevon) 0.69 AV Regurgitation 2D LVOT Area 3.3 cm2 Ventricles Name Value Normal LV Dimensions 2D/MM IVS Diastolic Thickness (2D) 0.8 cm 0.6-1.0 LVID Diastole (2D) 4.4 cm 3.8-5.2 LVIW Diastolic Thickness (2D) 0.8 cm 0.6-0.9 LVID Systole (2D) 3.0 cm 2.2-3.5 LVOT Diameter 2.1 cm LV Mass (2D Cubed) 105.43 g 67.00-162.00 LV Mass Index (2D Cubed) 59 g/m2 43-95 Relative Wall Thickness (2D) 0.35 <=0.42 LV Fractional Shortening/Ejection Fraction 2D/MM LV Fractional Shortening (2D) 33 % 27-45 LV EF (2D Teichholz) 62 % LV Diastolic Volume (4C MOD) 74 ml LV EF (4C MOD) 64 % LV Diastolic Volume (2C MOD) 74 ml LV EF (2C MOD) 59 % LV Diastolic Volume (BP MOD) 74 ml 46-106 LV Diastolic Volume Index (BP MOD) 42 ml/m2 29-61 LV Systolic Volume (BP MOD) 29 ml 14-42 LV Systolic Volume Index (BP MOD) 16 ml/m2 8-24 LV EF (BP MOD) 61 % 54-74 LV Diastolic Length (4C) 7.2 cm LV Systolic Length (4C) 5.5 cm LV Stroke Volume (4C MOD) 48 ml Atria Name Value Normal LA Dimensions LA Volume (4C A-L) 38 ml LA Volume (BP A-L) 43 ml RA Dimensions RA Systolic Major [place] Length (4C) 5.1 cm 2.2-2.8 RA Area (4C) 15.3 cm2 <=18.0 Report Signatures
[2025-04-28 04:00] VITALS: PULSE 58
[2025-04-28] MEDS: LEVOTHYROXINE SODIUM 100 MCG TABLET PO (05:24)
[2025-04-28 06:00] VITALS: BP 99/63; PULSE 65; RESP 16; TEMP 36.9; O2SAT 98
--- NOTE | 2025-04-28 06:58 | P.HP_ITS ---
H&P: HPI History of Present Illness Date/Time: 04/28/25 06:58 Chief Complaint: Brief loss of vision while driving Narrative: 65-year-old female with a past medical history of hypothyroidism and migraines who presented to the ER via private vehicle several hours after having a brief loss of vision. The patient reported that she was driving at around 09:15 on the [employer] [place] 65 miles an hour. All the sudden without warning her vision started to fade and she had complete loss of vision in both eyes she reports that by the time she could ease off of the gas and panic about what was happening that her vision had returned. A moment after her vision returned she had a instantaneous sensation of tingling throughout her extremities and she reported a visualization of sparkles almost like light shining through drops of water on a surface that lasted for a few seconds and then resolved. She did not have any precipitating symptoms or relieving factors that she knows of she she had not had anything to eat prior to onset of symptoms. She reports that she has been having some nonspecific issues with her right eye for which she has not found a eye doctor that she likes. She had went ahead and went to her friend's house and was out with a walk with her friend when she colder about the symptoms that she had. Her friend called her ia Who recommended that the patient come in for evaluation. Patient presented to the ER around 11:00. Since that time she has not had a recurrence of symptoms. She denies any localizing weakness, difficulty with coordination, difficulty with speech. She did have a CT of the head without contrast performed which was negative for acute process. She had a CTA of the head and neck which was negative for any significant stenosis occlusion or aneurysm. However there was an incidental finding of a left tonsillar lesion incompletely characterized. She denies having any difficulty swallowing or pain. She had only had a couple coffee prior to the onset of her symptoms. She denies any associated nausea, dizziness, lightheadedness or fatigue. She does have a history of migraines but she reports that her migraines are few and far between and she never had auras with her prior migraines. She has not had a headache since onset of these symptoms. The patient does report that she has a history of having some lightheadedness with standing too quickly. She correlates this to her having a baseline low blood pressure she reports her blood pressures usually around 100 over 60 at baseline. Review of Systems 2 Review of Systems: 12 systems were reviewed with pertinent positives and negatives per HPI. Except as documented in the HPI, all other systems were reviewed and are negative. [facility] Past Medical History Medical History (Updated 04/28/25 @ 07:20 by Linda Salazar DO) Hypothyroidism (acquired) Seborrheic keratoses Actinic keratosis Vitamin D deficiency Fear of flying Anxiety Renal cyst Surgical History Surgical History (Updated 04/28/25 @ 07:20 by Linda Salazar DO) History of repair of right rotator cuff History of sacrocolpopexy (05/14/19) History of endometrial ablation menometrorrhagia History of robot-assisted laparoscopic hysterectomy (05/14/19) total laparoscopic hysterectomy w/bilateral salpingo-oophorectomy--uterine prolapse Family History Family History Grandparent Family history of coronary artery disease Father Cerebrovascular accident Mother Sibling Rectal cancer brother Social History Social History (Updated 04/28/25 @ 07:22 by Linda Salazar DO) Social History: Patient is and lives alone. She has 1 daughter. She has 2 cats. She drinks between 5-12 alcoholic beverages a week. Code status: Full code Surrogate decision maker: Daughter Smoking packs per day: 0.5 Smoking cigarettes per day: 10.0 Years smoked: 10 Smoking pack-years: 5.00 Smoking status: Former smoker Tobacco type: cigarettes Second hand tobacco smoke exposure: No Smoking end date: 06/03/90 Alcohol intake: current Drinks per week: 5 Alcohol use details: social Substance use: current Substance use type: does not use Other substance usage details: CBD oil for sciatica Do You Feel Safe in your Home?: Yes Lack of Transportation: No Lack of Food: Never True Current Housing: I Have Housing Concerned About Future Housing: No Difficulty Paying Gas/Electric Bills: No Difficulty Paying for Meds: No Currently Unemployed: No Education: High School Diploma/GED Difficulty w/ Childcare or Family Care: No Living arrangements: alone Additional living arrangements comments: Occupation/Education: retired Gender identity (if verbalized by the patient): Female Sexual Orientation (if Verbalized by the Patient): Straight or Heterosexual Spiritual care concerns: No Meds Home Medications and Allergies Home Medications ?Medication ?Instructions ?Recorded ?Confirmed ?Type sumatriptan succinate 100 mg tablet See Rx Instruction s .Route 04/14/24 04/27/25 Rx .COMPLEX #9 tabs levothyroxine 100 mcg tablet See Rx Instructions .Rout e 02/08/25 04/27/25 Rx .COMPLEX #90 tabs Allergies Allergy/AdvReac Type Severity Reaction Status Date / Time No Known Allergies Allergy Verified 04/27/25 14:25 Vital Signs Vital Signs - 24 hr 04/27/25 10:50 04/27/25 11:06 04/27/25 11:07 Temperature 98.7 F Pulse Rate 77 78 78 Respiratory Rate 12 14 15 Blood Pressure 108/60 108/60 Pulse Oximetry 97 98 98 Oxygen Delivery Room Air 04/27/25 11:10 04/27/25 11:11 04/27/25 11:15 Temperature 98.7 F Pulse Rate 80 75 91 Respiratory Rate 21 H 14 15 Blood Pressure 108/60 108/60 104/90 Pulse Oximetry 96 98 100 Oxygen Delivery 04/27/25 11:16 04/27/25 11:31 04/27/25 11:45 Temperature Pulse Rate 74 75 59 L Respiratory Rate 12 17 16 Blood Pressure 103/66 Pulse Oximetry 99 99 97 Oxygen Delivery 04/27/25 11:46 04/27/25 12:00 04/27/25 12:01 Temperature Pulse Rate 62 70 86 Respiratory Rate 12 19 26 H Blood Pressure 103/67 Pulse Oximetry 97 97 Oxygen Delivery 04/27/25 12:15 04/27/25 12:16 04/27/25 12:30 Temperature Pulse Rate 69 70 79 Respiratory Rate 18 19 20 Blood Pressure 105/59 L 114/73 Pulse Oximetry 97 98 97 Oxygen Delivery 04/27/25 12:31 04/27/25 12:45 04/27/25 12:46 Temperature Pulse Rate 80 64 66 Respiratory Rate 16 18 16 Blood Pressure 109/68 Pulse Oximetry 97 98 97 Oxygen Delivery 04/27/25 13:00 04/27/25 13:01 04/27/25 13:15 Temperature Pulse Rate 71 68 82 Respiratory Rate 18 18 17 Blood Pressure 121/72 Pulse Oximetry 100 100 97 Oxygen Delivery 04/27/25 13:16 04/27/25 14:59 04/27/25 16:00 Temperature 97.3 F L Pulse Rate 63 62 66 Respiratory Rate 17 12 Blood Pressure 103/86 98/55 L Pulse Oximetry 97 98 Oxygen Delivery 04/27/25 20:00 04/27/25 21:51 04/28/25 00:00 Temperature 97.6 F Pulse Rate 66 58 L 58 L Respiratory Rate 16 Blood Pressure 113/73 Pulse Oximetry 98 Oxygen Delivery 04/28/25 04:00 04/28/25 06:00 Temperature 98.4 F Pulse Rate 58 L 65 Respiratory Rate 16 Blood Pressure 99/63 L Pulse Oximetry 98 Oxygen Delivery Exam 2 Narrative: Weight 70.7 kg BMI 27.6 Const: Other: No acute distress, well-developed well-nourished, appears stated age HENMT: Other: Mucous membranes are moist, no oral pharyngeal erythema, unable to adequately visualize patient tonsils, head is normocephalic atraumatic Eyes: Other: Pupils are equal and reactive, no scleral icterus, no conjunctival pallor Neck: Other: No JVD, no lymphadenopathy no carotid bruit Resp: Other: Clear to auscultation bilaterally, no increased work of breathing Cardio: Other: Regular rate, regular rhythm, 2+ bilateral radial pedal pulses, no murmur GI: Other: Soft, nontender, nondistended, positive bowel sounds Skin: Other: No jaundice, no pallor Neuro: Other: Alert oriented x4, cranial nerves 2-12 grossly intact, speech is clear, no facial asymmetry, finger-nose and [id number]-lm-[id number] intact, normal tone, no localizing neurologic deficits noted Extrem: Other: No clubbing, cyanosis or edema, 5/5 game tester strength bilateral, 5/5 strength on straight leg raise bilateral Psych: Other: Appropriate mood and affect, pleasant and cooperative, judgment and insight intact H&P: Results Labs Labs: Laboratory Tests 04/27/25 10:59 04/27/25 10:59 04/27/25 04/27/25 04/28/25 10:52 10:59 05:36 WBC 5.2 RBC 4.38 Hgb 12.8 Hct 39.1 MCV 89.3 MCH 29.2 MCHC 32.7 RDW 13.2 Plt Count 239 MPV 10.1 Immature Gran % (Auto) 0.2 Neut % (Auto) 62.6 Lymph % (Auto) 28.3 Mobile % (Auto) 7.5 Eos % (Auto) 0.6 Baso % (Auto) 0.8 Lymph # (Auto) 1.47 Mobile # (Auto) 0.4 Eos # (Auto) 0.0 Baso # (Auto) 0.0 Abs Immat Gran (auto) 0.01 Absolute Neuts (auto) 3.3 Absolute Nucleated RBC 0.000 Nucleated RBC % 0.0 PT 12.9 INR 1.0 APTT 26.5 Sodium 138 Potassium 4.2 Chloride 105 Carbon Dioxide 26 Anion Gap 7 BUN 12 Creatinine 0.72 Estim Creat Clear Calc 61 Estimated GFR > 60 Glucose 113 H POC Capillary Glucose 125 H Calcium 9.4 Total Bilirubin 0.6 AST 29 ALT 18 Alkaline Phosphatase 74 Troponin I < 0.012 Total Protein 7.8 Albumin 4.5 Triglycerides Pending Cholesterol Pending LDL Cholesterol Direct Pending HDL Direct Pending Impressions Head CT 04/27/25 11:01 Impression: 1.No acute intracranial abnormality. Results discussed with the referring clinician immediately Head/Neck CTA 04/27/25 11:13 IMPRESSION: 1. There is no critical stenosis, occlusion or aneurysm identified. 2. Left tonsillar lesion incompletely characterized. Neoplasm is not excluded. ENT consultation is recommended Chest X-Ray 04/27/25 12:07 IMPRESSION: 1. No acute cardiopulmonary findings given portable technique. Consider PA and lateral films. Test Date: 2025-04-27 11:08:42 Measurements Intervals Naylor Rate: 79 P: 44 ID: [id number] QRS: 9 QRSD: 92 T: 12 QT: 378 QTc: 435 Interpretive Statements SINUS RHYTHM LOW QRS VOLTAGE BORDERLINE ECG All imaging and EKGs personally reviewed and interpreted. And unless stated otherwise agree with radiologic and cardiology interpretation. Assessment and Plan Assessment and plan (1) Brain TIA: Code(s): G45.9 - Transient cerebral ischemic attack, unspecified Status: Acute (2) Vision changes: Code(s): H53.9 - Unspecified visual disturbance Status: Acute (3) Transient visual loss of both eyes: Code(s): H53.123 - Transient visual loss, bilateral Status: Acute (4) Hypothyroidism (acquired): Code(s): E03.9 - Hypothyroidism, unspecified Status: Acute Plan Transient mention changes concerning for possible transient ischemic attack. Differential could include complex migraine patient is not having a headache to support also possible but less likely is but cardiogenic cause. Patient has not had any rhythm disturbances or fluctuations in her blood pressure sent presentation to the hospital. She has not had any recurrence of symptoms. CT of the head and CTA of the head and neck were performed with results as discussed above. Will order MRI of the brain with and without contrast for further delineation. Neurology has been consulted for further recommendations. Patient does have a incompletely characterized left tonsillar lesion. This could be followed up with ENT as outpatient which the patient is agreeable with. No need for acute inpatient intervention. Patient has been admitted as observation status. MEDICAL DECISION MAKING NARRATIVE -Spoke with the ED provider in detail regarding patient's evaluation, workup and management -Patient seen and examined at bedside -Collaborated with patient's nurse at the bedside in detail and addressed all concerns -Labs, electrolytes, radiology, investigations and test results personally reviewed and interpreted unless otherwise specified -ED/Consult/Nursing/Ancilliary notes on the chart reviewed and appreciated -Spoke with patient at bedside and diagnosis and plan of care was discussed. All questions answered. Quality VTE Prophylaxis VTE prophylaxis: mechanical ordered (SCDs) Hospitalist [facility] Advance Care Plan I have confirmed that the patient's Advanced Care Plan is present, code status is documented, or surrogate decision maker is listed in patient medical record.: Yes Medication Reconciliation I have utilized all available resources to obtain, update and review the patients current medications (includes all prescriptions, OTC, herbals, cannabis, and nutritional supplements).: Yes
[2025-04-28 08:00] VITALS: PULSE 68
[2025-04-28 09:05] LABS: Cholesterol 200 mg/dL (0-200); HDL Direct 80 mg/dL; Triglycerides 43 mg/dL (<150)
[2025-04-28] MEDS: ASPIRIN 81 MG CHEWABLE TABLET PO (09:22)
[2025-04-28] MEDS: LORazepam (*CRX) 1 MG TABLET PO (10:02)
--- NOTE | 2025-04-28 10:18 | PC.NURSE ---
To MRI per wheelchair.
[2025-04-28 12:00] VITALS: PULSE 80
--- NOTE | 2025-04-28 12:21 | P.CONNEU_ITS ---
Assessment and Plan Assessment and plan (1) Transient visual loss of both eyes: Code(s): H53.123 - Transient visual loss, bilateral Status: Acute (2) Brain TIA: Code(s): G45.9 - Transient cerebral ischemic attack, unspecified Status: Acute Plan 1. Possible TIA with negative CTA of the head and neck and negative MRI of the brain, though echocardiogram has not been done. Will definitely need the echocardiogram, all the pros and cons have been described to her, she is more concerned about the hypotension that can be monitored additionally she should be followed by the ball ender to rule out the possibility of impending glaucoma because of the visual obscuration, and if necessary in the future 24hours or longer her cardiac monitoring to rule out the possibility of cardiac dysrhythmia. In the meantime she can be given 1 baby aspirin every day and have explained to her all the possibilities if any question arise please do not hesitate to contact me. Consult date: 04/28/25 HPI: Flor Bustamante is a 65 year old female Admitted to the hospital through the emergency room for the evaluation of brief visual changes while she was driving approximately 915 this morning and with specific description that she had lost bilateral vision which lasted for few seconds and then the vision came back as it left she gave knows to previous history though she does have previous history of migraine but gave no history of headache this particular time. Patient is not allergic to any medication. She has ongoing history of 1. Hypertension 2. Hypothyroidism 3. Vitamin-D deficiency 4. Seborrheic keratosis 5. bladder surgery with bladder suspension procedure 6. Robotic laparoscopic hysterectomy 7. Former smoker 8. Currently 5 drinks per week And history of Normal neurological examination in the emergency room with normal vital signs, normal CBC, normal BMP, and normal masters scan, normal CTA of the head without any aneurysm or territorial vascular stenosis, but incidental finding of left tonsillar lesion raising the possibility of need for the ENT consultation, Review of Systems 2 Review of Systems: All systems reviewed & are unremarkable except as noted in HPI and below PMFSH Past Medical History Medical History Hypothyroidism (acquired) Seborrheic keratoses Actinic keratosis Vitamin D deficiency Fear of flying Anxiety Renal cyst Surgical History Surgical History History of repair of right rotator cuff History of sacrocolpopexy (05/14/19) History of endometrial ablation menometrorrhagia History of robot-assisted laparoscopic hysterectomy (05/14/19) total laparoscopic hysterectomy w/bilateral salpingo-oophorectomy--uterine prolapse Family History Family History Grandparent Family history of coronary artery disease Father Cerebrovascular accident Mother Sibling Rectal cancer brother Social History Social History Social History: Patient is and lives alone. She has 1 daughter. She has 2 cats. She drinks between 5-12 alcoholic beverages a week. Code status: Full code Surrogate decision maker: Daughter Smoking packs per day: 0.5 Smoking cigarettes per day: 10.0 Years smoked: 10 Smoking pack-years: 5.00 Smoking status: Former smoker Tobacco type: cigarettes Second hand tobacco smoke exposure: No Smoking end date: 06/03/90 Alcohol intake: current Drinks per week: 5 Alcohol use details: social Substance use: current Substance use type: does not use Other substance usage details: CBD oil for sciatica Lack of Transportation: No Lack of Food: Never True Current Housing: I Have Housing Concerned About Future Housing: No Difficulty Paying Gas/Electric Bills: No Difficulty Paying for Meds: No Currently Unemployed: No Education: High School Diploma/GED Difficulty w/ Childcare or Family Care: No Living arrangements: alone Additional living arrangements comments: Occupation/Education: retired Gender identity (if verbalized by the patient): Female Sexual Orientation (if Verbalized by the Patient): Straight or Heterosexual Spiritual care concerns: No Meds Home Medications and Allergies Home Medications ?Medication ?Instructions ?Recorded ?Confirmed ?Type sumatriptan succinate 100 mg tablet See Rx Instruction s .Route 04/14/24 04/27/25 Rx .COMPLEX #9 tabs levothyroxine 100 mcg tablet See Rx Instructions .Rout e 02/08/25 04/27/25 Rx .COMPLEX #90 tabs Allergies Allergy/AdvReac Type Severity Reaction Status Date / Time No Known Allergies Allergy Verified 04/27/25 14:25 Vital Signs Vital Signs - 24 hr 04/27/25 12:30 04/27/25 12:31 04/27/25 12:45 Temperature Pulse Rate 79 80 64 Respiratory Rate 20 16 18 Blood Pressure 114/73 109/68 Pulse Oximetry 97 97 98 Oxygen Delivery 04/27/25 12:46 04/27/25 13:00 04/27/25 13:01 Temperature Pulse Rate 66 71 68 Respiratory Rate 16 18 18 Blood Pressure 121/72 Pulse Oximetry 97 100 100 Oxygen Delivery 04/27/25 13:15 04/27/25 13:16 04/27/25 14:59 Temperature 36.3 C L Pulse Rate 82 63 62 Respiratory Rate 17 17 12 Blood Pressure 103/86 98/55 L Pulse Oximetry 97 97 98 Oxygen Delivery 04/27/25 16:00 04/27/25 20:00 04/27/25 21:51 Temperature 36.4 C Pulse Rate 66 66 58 L Respiratory Rate 16 Blood Pressure 113/73 Pulse Oximetry 98 Oxygen Delivery 04/28/25 00:00 04/28/25 04:00 04/28/25 06:00 Temperature 36.9 C Pulse Rate 58 L 58 L 65 Respiratory Rate 16 Blood Pressure 99/63 L Pulse Oximetry 98 Oxygen Delivery 04/28/25 08:00 04/28/25 08:00 Temperature Pulse Rate 68 Respiratory Rate Blood Pressure Pulse Oximetry Oxygen Delivery Room Air Exam 2 Narrative: examination revealed her to be awake alert cooperative in no obvious acute distress, head normocephalic with no cranial bruit, ear nose throat examination normal, neck supple with no cervical bruit, heart regular with no murmur, lungs clear to auscultation with no rhonchi or crepitations, abdomen soft nontender with normal bowel sounds, neurologically she is awake alert oriented x4 speech not dysphasic not dysarthric not dysphonic pupils round regular feels the vision full extraocular movements full face symmetrical tongue midline motor examination revealed normal strength and tone in upper and lower extremities reflexes symmetrical plantars are downgoing there is no evidence of sensory or cerebellar deficit. Results Labs 04/27/25 10:59 04/27/25 10:59
--- NOTE | 2025-04-28 15:54 | PM.DS ---
DS: Admitting Diagnosis Discharge Date 04/28/2025 Admitting Diagnosis Brain TIA Vision changes Transient visual loss of both eyes Hypothyroidism DS: Discharge Diagnosis Discharge Diagnosis (1) Brain TIA: Code(s): G45.9 - Transient cerebral ischemic attack, unspecified Status: Acute (2) Vision changes: Code(s): H53.9 - Unspecified visual disturbance Status: Acute (3) Transient visual loss of both eyes: Code(s): H53.123 - Transient visual loss, bilateral Status: Acute (4) Hypothyroidism (acquired): Code(s): E03.9 - Hypothyroidism, unspecified Status: Acute DS: Summary Hospital Course Reason for hospitalization: transient visual loss Hospital Course: Brain TIA -s/p head CT without acute findings -s/p CTA head and neck without acute findings -s/p Brain MRI without acute findings -ECHO -telemetry monitoring without abnormalities -Neurology was consulted -start aspirin 81 mg PO daily -recommended outpatient follow up with an bottom scrubber Vision changes Transient visual loss of both eyes -s/p head CT without acute findings -s/p CTA head and neck without acute findings -s/p Brain MRI without acute findings -ECHO with EF 60-65%, grade 1 diastolic dysfunction, bubble study less than ideal due to patient movement during Valsalva/bracing -telemetry monitoring without abnormalities -Neurology was consulted -start aspirin 81 mg PO daily -recommended outpatient follow up with an bottom scrubber Left tonsillar lesion -incidental finding on CT and MRI -patient needs to see ENT, can be done as outpatient -Patient provided with contact information for Dr. Lua, she will call to schedule an appointment Hypothyroidism -continue home levothyroxine Time Spent with Patient Time attestation: Total time spent providing and/or coordinating discharge services: 35 Minutes Exam Const: Other: No acute distress, well-developed well-nourished, appears stated age HENMT: Other: Mucous membranes are moist, no oral pharyngeal erythema, unable to adequately visualize patient tonsils, head is normocephalic atraumatic Eyes: Other: Pupils are equal and reactive, no scleral icterus, no conjunctival pallor Neck: Other: No JVD, no lymphadenopathy no carotid bruit Resp: Other: Clear to auscultation bilaterally, no increased work of breathing Cardio: Other: Regular rate, regular rhythm, 2+ bilateral radial pedal pulses, no murmur GI: Other: Soft, nontender, nondistended, positive bowel sounds Skin: Other: No jaundice, no pallor Neuro: Other: Alert oriented x4, cranial nerves 2-12 grossly intact, speech is clear, no facial asymmetry, finger-nose and [id number] intact, normal tone, no localizing neurologic deficits noted Extrem: Other: No clubbing, cyanosis or edema, 5/5 evaluation analyst strength bilateral, 5/5 strength on straight leg raise bilateral Psych: Other: Appropriate mood and affect, pleasant and cooperative, judgment and insight intact DS: Data Data Completed and Pending Completed studies during hospitalization: ECHO Signed Patient: Flor Bustamatne : 1960 MR#: [id number] Age: 65 Acct:[id number] Loc: [id number] ADM Date: 04/27/[address]: Navi Benson M.D. Ordering Physician: Allegra Gannon APRN Date of Service: 04/28/25 Procedure(s): CA echo doppler w bubble study Accession Number(s): [id number] cc: Finesse Mazariegos MD; Allegra Gannon APRN~ Patient Info Name: Flor Bustamante Age: 65 years : 1960 Gender: Female Ht: 63 in Wt: 155 lbs BSA: 1.79 m2 HR: 80 bpm BP: 99 / 63 mmHg Technical Quality: Fair Exam Date: 04/28/2025 2:40 PM Patient Status: O Admit Date: 04/27/2025 Exam Type: CA echo doppler w bubble study Complete two-dimensional, color flow and Doppler transthoracic echocardiogram is performed with agitated saline. Staff Referring Physician: Ramy Bills Pack Operator: Alli Ochoa III Attending Provider: Navi Benson Contrast/Agitated Saline Contrast/Ag. Saline: Agitated Saline Amount: 16.00 ml Existing IV Access: Yes IV Access Condition: patent with no signs of infiltration Summary 1. tough apical windows, bubble study less than ideal due to patient movement during valsalva/bracing. 2. Left ventricular chamber dimension is normal. 3. Left ventricular systolic function is normal, estimated at 60-65. 4. The left ventricular diastolic function is grade I diastolic dysfunction. 5. E/e' 5 is not elevated. 6. There is trace tricuspid valve regurgitation. Left Ventricle E/e' 5 is not elevated. Left ventricular chamber dimension is normal. Left ventricular systolic function is normal, estimated at 60-65. The left ventricular diastolic function is grade I diastolic dysfunction. Right Ventricle Right ventricular chamber dimension is normal. Right ventricular systolic function is normal and with normal TAPSE 2.0 cm. Left Atria Left atrial chamber dimension is normal. Right Atria Right atrial chamber dimension is normal. Atrial Septum Interatrial septum not well visualized by 2D and agitated saline imaging. Agitated saline injection with and without valsalva maneuver opacified right side cardiac chambers without shunt to left side cardiac chambers. Aortic Valve The aortic valve is trileaflet. There is no aortic valve stenosis. There is no aortic valve regurgitation. Pulmonic Valve There is no pulmonic regurgitation. Mitral Valve There is no mitral valve stenosis. There is no mitral valve regurgitation. Tricuspid Valve There is trace tricuspid valve regurgitation. RVSP is not measured due to an inadequate TR jet. Pericardium/Pleural There is no pericardial effusion. Inferior Vena Cava Normal inferior vena cava with >50% collapse upon inspiration consistent with normal right atrial pressure, 5 mmHg. Aorta The aortic root size at the sinus of Valsalva is normal. Left Ventricular Outflow Tract Name Value Normal LVOT 2D LVOT Diameter 2.1 cm LVOT Doppler LVOT Peak Velocity 79 cm/s LVOT Peak Gradient 3 mmHg LVOT Mean Gradient 2 mmHg LVOT VTI 18 cm LVOT VTI/AV VTI Ratio 0.7 LVOT Stroke Volume 61 ml LVOT CO 3.7 l/min LVOT CI 2.1 l/min/m2 Pulmonic Valve Name Value Normal PV Doppler PV Peak Velocity 67 cm/s PV Peak Gradient 2 mmHg PV Mean Gradient 1 mmHg Mitral Valve Name Value Normal MV Doppler MV Peak Gradient 3 mmHg MV Mean Gradient 1 mmHg MV Area (Cont Eq VTI) 2.5 cm2 MV Diastolic Function MV E Peak Velocity 59 cm/s MV A Peak Velocity 77 cm/s MV E/A 0.8 MV Decel Time (PW) 232 ms MV Annular TDI MV E/e' (Septal) 6.7 MV E/e' (Lateral) 5.1 MV E/e' (Average) 5.9 Tricuspid Valve Name Value Normal Estimated PAP/RSVP RA Pressure 5 mmHg <=5 TV Annular TDI TV Lateral Lennie s' Velocity 11.9 cm/s >=9.5 Aortic Valve Name Value Normal AV Doppler AV Peak Velocity 115 cm/s AV Peak Gradient 5 mmHg AV Mean Gradient 3 mmHg AV VTI 26 cm AV Area (Cont Eq VTI) 2.4 cm2 >=3.0 AV Area (Cont Eq Kevon) 2.3 cm2 AV DI (Kevon) 0.69 AV Regurgitation 2D LVOT Area 3.3 cm2 Ventricles Name Value Normal LV Dimensions 2D/MM IVS Diastolic Thickness (2D) 0.8 cm 0.6-1.0 LVID Diastole (2D) 4.4 cm 3.8-5.2 LVIW Diastolic Thickness (2D) 0.8 cm 0.6-0.9 LVID Systole (2D) 3.0 cm 2.2-3.5 LVOT Diameter 2.1 cm LV Mass (2D Cubed) 105.43 g 67.00-162.00 LV Mass Index (2D Cubed) 59 g/m2 43-95 Relative Wall Thickness (2D) 0.35 <=0.42 LV Fractional Shortening/Ejection Fraction 2D/MM LV Fractional Shortening (2D) 33 % 27-45 LV EF (2D Teichholz) 62 % LV Diastolic Volume (4C MOD) 74 ml LV EF (4C MOD) 64 % LV Diastolic Volume (2C MOD) 74 ml LV EF (2C MOD) 59 % LV Diastolic Volume (BP MOD) 74 ml 46-106 LV Diastolic Volume Index (BP MOD) 42 ml/m2 29-61 LV Systolic Volume (BP MOD) 29 ml 14-42 LV Systolic Volume Index (BP MOD) 16 ml/m2 8-24 LV EF (BP MOD) 61 % 54-74 LV Diastolic Length (4C) 7.2 cm LV Systolic Length (4C) 5.5 cm LV Stroke Volume (4C MOD) 48 ml Atria Name Value Normal LA Dimensions LA Volume (4C A-L) 38 ml LA Volume (BP A-L) 43 ml RA Dimensions RA Systolic Major [place] Length (4C) 5.1 cm 2.2-2.8 RA Area (4C) 15.3 cm2 <=18.0 Report Signatures Please be advised this is a medical document. It is intended for liav-iw-fibn communication. It is written in medical language and may contain unfamiliar abbreviations or verbiage. Medical documents are intended to carry relevant information, facts as evident, and the clinical opinion of the practitioner at the time of the encounter. This report may have been done utilizing a voice recognition system. Attempts have been made to correct errors. However, there may be uncorrected grammatical, spelling, and recognition errors present. The file time of this note does not necessarily represent the time of service. Dictated By: Jayant Estes DO 04/28/25 1440 Signed By: 04/28/25 1535 Labs on day of discharge: Labs from last 24 hours 04/28/25 05:36 Triglycerides 43 Cholesterol 200 LDL Cholesterol Direct 80 HDL Direct 80 Imaging Radiologist's impression: Ordering Physician: Ramy Bills MD Date of Service: 04/27/25 Procedure(s): CT brain wo con Accession Number(s): [id number] cc: Ramy Bills MD; Finesse Mazariegos MD~ EXAMINATION: CT brain wo con, 04/27/2025 10:45 EVAPORATOR SUPERVISOR HISTORY: loss of vision COMPARISON: No comparisons available. Technique: Axial images obtained of the brain without contrast. One or more of the following dose reduction techniques were used: automated exposure control, adjustment of the mA and/or kV according to patient size, use of iterative reconstruction technique. Findings: No acute infarct or parenchymal hemorrhage. No abnormal mass or mass effect. No midline shift. No extra-axial fluid collections. No hydrocephalus. Mastoid air cells unremarkable. Sinuses and orbits unremarkable. No acute fracture. No significant facial or scalp soft tissue swelling evident. No radiopaque foreign body is seen. Impression: 1.No acute intracranial abnormality. Results discussed with the referring clinician immediately Reviewed, dictated and finalized at location P. ORATOR SUPERVISOR Ordering Physician: Ramy Bills MD Date of Service: 04/27/25 Procedure(s): CTA brain carotid Accession Number(s): [id number] cc: Ramy Bills MD; Finesse Mazariegos MD~ EXAMINATION: CTA brain carotid, 04/27/2025 10:45 EVAPORATOR SUPERVISOR HISTORY: vision change COMPARISON: No comparisons available. TECHNIQUE: CTA scan with 3D Reconstructions of the brain and neck was performed with contrast Isovue 300, 92cc injected IV. One or more of the following dose reduction techniques were used: automated exposure control, adjustment of the mA and/or kV according to patient size, use of iterative reconstruction technique. Unless otherwise stated, incidental findings do not require dedicated follow up imaging FINDINGS: CTA brain: Visualized brain parenchyma appears unremarkable. No sclerotic or lytic lesions are identified. The basilar artery appears unremarkable. The right posterior cerebral artery appears unremarkable. The left posterior cerebral arteries. Predominantly by the [place] and appears unremarkable. The right petrous and cavernous ICA segments are unremarkable. The right M1, M2 segments and their branches are unremarkable. The right A1 and A2 segments are unremarkable The left petrous and cavernous ICA segments unremarkable. The left M1, M2 segments and their branches appear unremarkable. The left A1 and A2 segments are unremarkable. CTA NECK: Soft tissues appear unremarkable. There is a rim-enhancing focus in the left tonsillar tissue measuring 5 x 6 mm which is incompletely characterized. There is no thickening of the prevertebral space. Visualized submandibular and parotid glands are unremarkable. There is no lymphadenopathy appreciated. Nonspecific thickening is noted of the esophagus. The lung apices appear unremarkable. There are no sclerotic or lytic lesions identified. No significant sinusitis The cervical segments of the vertebral arteries appear unremarkable. The left vertebral artery is dominant Right CCA unremarkable. Proximal right ICA unremarkable. Left CCA unremarkable. Proximal left ICA unremarkable. IMPRESSION: 1. There is no critical stenosis, occlusion or aneurysm identified. 2. Left tonsillar lesion incompletely characterized. Neoplasm is not excluded. ENT consultation is recommended Reviewed, dictated and finalized at location P. ORATOR SUPERVISOR Ordering Physician: Ramy Bills MD Date of Service: 04/27/25 Procedure(s): XR chest 1V portable Accession Number(s): [id number] cc: Ramy Bills MD; Finesse Mazariegos MD~ Examination: XR chest 1V portable Clinical History: loss of vision Comparison: None Technique: Portable AP Findings: Heart size normal. Lungs clear. No acute bony abnormality. IMPRESSION: 1. No acute cardiopulmonary findings given portable technique. Consider PA and lateral films. Reviewed, dictated and finalized at location R. ORATOR SUPERVISOR Ordering Physician: Ramy Bills MD Date of Service: 04/28/25 Procedure(s): MR brain/brain stem wo/w con Accession Number(s): [id number] cc: Ramy Bills MD; Navi Benson MD; Finesse Mazariegos MD~ EXAMINATION: MR brain/brain stem wo/w con DATE: 04/28/2025 11:27 EVAPORATOR SUPERVISOR INDICATION: TIA TECHNIQUE: Magnetic resonance imaging (MRI) of the brain and brainstem was performed without and with intravenous contrast. Sequences included sagittal and axial T1-weighted SE, axial diffusion-weighted FS SE, axial T2*-weighted GRE, axial T2-weighted FLAIR Propeller, and axial T2-weighted Propeller. Apparent diffusion coefficient (ADC) maps were created. 14 cc MultiHance administered intravenously COMPARISON: CTA brain/carotid dated 04/27/[address] brain dated 04/27/2025 FINDINGS: The brain volume and ventricular system are within normal limits. The brain parenchymal signal intensity pattern and michaels/white matter is normal and there is no evidence of hemorrhage, space occupying masses or infarctions. The flow signal voids of the major arterial structures about the [place] and within the major dural venous sinuses appear grossly unremarkable and patent. The seventh and eighth cranial nerve complexes are normal. The mid sagittal image demonstrates a normal craniovertebral junction and corpus callosum. The paranasal sinuses are grossly unremarkable. No abnormal contrast enhancement was appreciated. Hypovascular left tonsillar lesion measuring 5 mm incompletely characterized as visualized on image 1 only. IMPRESSION: 1: No acute intracranial abnormality. 2: Incompletely evaluated 5 mm hypovascular lesion left tonsillar region. Recommend ENT consultation. Reviewed, dictated and finalized at location O. ORATOR SUPERVISOR Discharge Plan Discharge Attending physician on discharge: Jesse Hou Consulting providers: Sylvester Ballesteros Discharging Clinician: Allegra Gannon Patient Disposition: Home Activity: as tolerated Diet: as tolerated Discharge Instructions: Please call an bottom scrubber for an appointment to have your eyes examined. Please call ENT Dr. Lua to have the lesion on your tonsil further investigated. Patient Language: Ukrainian Stand Alone Forms: General Discharge Information Follow-up/Referrals: Russell Lua MD [Physician, Ear, Nose, Throat] Referral Note: call for an appointment related to the lesion that was found on your tonsil. Finesse Mazariegos MD [Primary Care Provider, Family Practice] Referral Note: call for an appointment to be see in the next 1-2 weeks Discharge Medications: New aspirin [Children's Aspirin] 81 mg Tablet,Chewable 81 mg PO DAILY@0800 Qty: 30 0RF Continued sumatriptan succinate 100 mg tablet See Rx Instructions .ROUTE .COMPLEX Qty: 9 1RF Dose Instruction: TAKE 1 TAB BY MOUTH AT ONSET OF HEADACHE IF NO RELIEF MAY REPEAT 1 TAB IN 2HR MAX = 2 TABS/24 HRS Rx Instructions: TAKE 1 TAB BY MOUTH AT ONSET OF HEADACHE IF NO RELIEF MAY REPEAT 1 TAB IN 2HR MAX = 2 TABS/24 HRS levothyroxine 100 mcg tablet See Rx Instructions .ROUTE .COMPLEX Qty: 90 1RF Dose Instruction: TAKE 1 TABLET BY MOUTH EVERY DAY Rx Instructions: TAKE 1 TABLET BY MOUTH EVERY DAY Date of admission: 04/27/25 12:39 Primary Care Provider: Finesse Mazariegos Admitting Provider: Navi Benson Attending physician on admission: Navi Benson Condition: Stable Quality VTE Prophylaxis VTE prophylaxis: mechanical ordered (SCDs)
[2025-04-28 16:00] VITALS: PULSE 63
== END 2025-04-28 16:10 | disposition home or self-care (01) ==
LOC: ANHED 11:05 → ANH3MEDSUR 15:00
PROVIDERS: Internal Medicine; Admitting Provider Internal Medicine; Emergency Provider Emergency Medicine; PCP Family Medicine; Visit Provider Internal Medicine
DX: G45.9 Transient cerebral ischemic attack, unspecified (principal); H53.123 Transient visual loss, bilateral; J35.9 Chronic disease of tonsils and adenoids, unspecified; E55.9 Vitamin D deficiency, unspecified; E03.9 Hypothyroidism, unspecified; Z87.891 Personal history of nicotine dependence
CPT/HCPCS: 36415; 70450; 70496; 70498; 70553; 71045; 80053; 80061; 82948; 84484; 85025; 85610; 85730; 93005; 93306; 96375; 99285; A9270; A9577; G0378; Q9967